=== PATIENT | male | born 1970 | race Caucasian/White ===

== ENCOUNTER → 2021-08-18 10:34 | Outpatient (CLI) | payer OTHER, SELFPAY ==
--- NOTE | 2021-08-19 05:38 | PFTCOMP_ITS ---
COMPLETE PULMONARY FUNCTION TEST INTERPRETATION Brief HPI: Patient is a 51 year old male, currently under the care of Dr. Dent, who presents to [facility] for complete pulmonary function tests secondary to diagnosis of dyspnea. Respiratory therapist reports good effort and reproducible results. Interpretation: Forced expiration spirometry shows no large airways obstructive ventilatory defect with an FEV1 of 124% predicted. There is no significant bronchodilator response by strict ATS criteria. Spirograms are of good quality and plateau normally. The respiratory flow volume loop shows a normal pattern. Lung volumes by body plethysmography show a normal total lung capacity at 7.5 L, 97% predicted. All other lung volumes are within normal limits. Diffusion capacity by carbon monoxide is increased at 133% predicted. The airway resistance is normal. No previous pulmonary function tests were available for review. Impression: These pulmonary function tests are within normal limits. Could consider a bronchoprovocation study of asthma is a consideration.
== END ==
PROVIDERS: PCP Internal Medicine; Referring Provider Internal Medicine Critical Care Medicine; Visit Provider Internal Medicine Critical Care Medicine
DX: R06.02 Shortness of breath (principal)
CPT/HCPCS: 94060; 94726; 94729

== ENCOUNTER → 2021-09-05 13:41 | Outpatient (CLI) | payer OTHER, SELFPAY ==
[2021-09-05 14:02] VITALS: PULSE 100; PULSE 102; PULSE 103; PULSE 83; PULSE 88; PULSE 92; PULSE 95; PULSE 99; O2SAT 95; O2SAT 96; O2SAT 97; O2SAT 98
--- NOTE | 2021-09-07 08:54 | PCM.PSN.6M ---
PSN 6 Minute Walk Test 6 Minute Walk Test 6 Minute Walk Test: 6 Minute Walk Test PSN:6-Minute Walk Test Start: 09/05/21 14:02 Freq: Status: Active Protocol: RESP.[id number] Document 09/05/21 14:02 [facility] (Rec: 09/05/21 14:06 [facility] [id number]) 6 Minute Walk Test Date Performed 09/05/21 Time Performed 13:45 Height 6 ft 2 in Weight: 82.554 kg Weight in Pounds 182.[address]: Serafin Dent Assistive device used: None Pre-test Oxygen Delivery Method Room Air Pulse Ox (%) 97 Pulse Rate (60-100 beats/min) 88 Dyspnea Amadou Scale (0-10) 0 1st minute Oxygen Delivery Method Room Air Pulse Ox (%) 96 Pulse Rate (60-100 beats/min) 92 Dyspnea Amadou Scale (0-10) 0 Number of Rests Taken 0 2nd minute Oxygen Delivery Method Room Air Pulse Ox (%) 96 Pulse Rate (60-100 beats/min) 102 H Dyspnea Amadou Scale (0-10) 0 Number of Rests Taken 0 3rd minute Oxygen Delivery Method Room Air Pulse Ox (%) 96 Pulse Rate (60-100 beats/min) 103 H Dyspnea Amadou Scale (0-10) 0 Number of Rests Taken 0 4th minute Oxygen Delivery Method Room Air Pulse Ox (%) 95 Pulse Rate (60-100 beats/min) 100 Dyspnea Amadou Scale (0-10) 0 Number of Rests Taken 0 5th minute Oxygen Delivery Method Room Air Pulse Ox (%) 97 Pulse Rate (60-100 beats/min) 99 Dyspnea Amadou Scale (0-10) 0 Number of Rests Taken 0 6th minute Oxygen Delivery Method Room Air Pulse Ox (%) 95 Pulse Rate (60-100 beats/min) 95 Dyspnea Amadou Scale (0-10) 1 Number of Rests Taken 0 Post-test Oxygen Delivery Method Room Air Pulse Ox (%) 98 Pulse Rate (60-100 beats/min) 83 Dyspnea Amadou Scale (0-10) 0 Full Laps Walked 24 Partial Lap, Number of Tiles Walked 29 Total Distance Walked (ft) 1445 Interpretation Interpretation: The patient ambulated 1445 feet over the course of 6 minutes beginning on room air without assistive devices. Pretesting oxygen saturation was noted to be 97% on room air. With ambulation, the preston oxygen saturation was 95%. There was no significant exertional oxygen desaturation. Recommendations Recommendations: There is no indication for the use of supplemental oxygen at this time.
== END ==
PROVIDERS: PCP Internal Medicine; Referring Provider Internal Medicine Critical Care Medicine; Visit Provider Internal Medicine Critical Care Medicine
DX: R06.02 Shortness of breath (principal)
CPT/HCPCS: 94618